=== PATIENT | male | born 1970 | race Two or more races ===

== ENCOUNTER → 2024-04-22 | Outpatient (CLI) | payer MEDICAID, SELFPAY ==
--- NOTE | 2024-04-22 16:15 | XR_ITS ---
Examination: Testicular sonography complete TECHNIQUE: Grayscale sonographic images testes with assessment arterial inflow venous outflow Doppler spectral analysis carful analysis Exam date and time: April 22, 2024 1632 hours INDICATIONS: Testicular lump noticed beginning 3 months ago. FINDINGS: Right testis 4.8 cm epididymis 1.2 cm 8mm appendix testis Mild varicocele Arterial flow testicle. No testicular mass Minimal hydrocele Left testis 4.8 cm epididymis 1.6 cm Prominent heterogeneous epididymis tail Arterial flow testicle. No testicular mass Mild varicocele Minimal hydrocele IMPRESSION: No testicular torsion or testicular mass Suspicious for left epididymitis
== END | disposition home or self-care (01) ==
PROVIDERS: PCP Nurse Practitioner Primary Care; Referring Provider Nurse Practitioner Primary Care; Visit Provider Nurse Practitioner Primary Care
DX: N50.89 Other specified disorders of the male genital organs (principal)
CPT/HCPCS: 76870